=== PATIENT | female | born 1990 | race Caucasian/White ===

== ENCOUNTER 2020-06-11 00:12 | Observation (INO) ==
[2020-06-11] MEDS ORDERED: SODIUM CHLORIDE 0.9% 1000ML 1,000 ML IV ONE (00:29)
[2020-06-11] MEDS ORDERED: FAMOTIDINE 20MG/5ML IV PUSH IV STA (00:29)
[2020-06-11] MEDS ORDERED: ONDANSETRON INJ 2 MG/ML 2 ML VIAL IV STA (00:29)
--- NOTE | 2020-06-11 00:34 | Emergency Department Note ---
History of Present Illness General Chief complaint: Abdominal Pain Stated complaint: NAUSEA,CHILLS,R SIDE INTO CHEST PAIN Time Seen by Provider: 06/11/20 00:20 History of Present Illness Maximum Pain Intensity: 6 This 29-year-old presents to the ER complaining of nausea and right upper q uadrant pain Location: Right upper quadrant Quality: Painful Severity: Moderate Duration: This morning Timing: Started at 9 AM Context: Symptoms got worse and patient came in Modifying factors: better with nothing; worse with eating Patient still has her gallbladder. Patient denies chest pain, dyspnea, fever, chills, flulike illness, urinary symptoms, diarrhea. Patient denies risk fact ors for Covid. She tested -3 weeks ago as her fianc was exposed to Covid as he works at the [employer]. Patient had a tubal ligation. No other abdominal surgeries. Home Medications Medication Instructions Recorded Confirmed Type naproxen 500 mg PO BID PRN 06/11/20 06/11/20 History Allergies Allergy/AdvReac Type Severity Reaction Status Date / Time No Known Allergies Allergy Verified 06/11/20 01:48 Past Med/Surg History Medical History No significant past medical history Surgical History H/O tubal ligation Social History Smoking Status: Never smoker Preferred Language: Spanish Feels Safe at Home: Yes Review of Systems A total of 10 systems reviewed and were otherwise negative Physical Exam Vital Signs Vital Signs - 24 hr 06/11/20 00:16 06/11/20 02:15 Temperature 37.1 C Temperature Source Temporal Artery Scan Pulse Rate 82 65 Pulse Rate [Finger] 65 Pulse Rhythm Regular Regular Pulse Rhythm [Finger] Regular Pulse Strength Normal Pulse Strength [Finger] Normal Respiratory Rate 20 18 Respiratory Effort / Characteristics Non-Labored Spontaneous Non-Labored Spontaneous Respiratory Depth Normal Normal Respiratory Pattern Regular Regular Blood Pressure 135/71 Blood Pressure [Right Arm] 130/87 Blood Pressure Mean 92 Blood Pressure Mean [Right Arm] 101 Blood Pressure Position Sitting Blood Pressure Position [Right Arm] Lying Pulse Oximetry 99 98 Oxygen Delivery Method Room Air Room Air Sepsis Recent Fever Within 48 Hours No Sepsis New/Unexplained Change in Mental Status N/A Sepsis Action Taken by Nursing No Action Required VITALS: Vitals are noted on the nurse's note and reviewed by myself. Vital signs stable. GENERAL: Pleasant female, in no acute distress, nondiaphoretic, well-developed well-nourished. SKIN: Capillary reflex less than 2 seconds. HEENT: Normocephalic. PERRLA. EOMI. Nares patent. Mucous membranes moist. Neck is supple without nuchal rigidity. HEART: Regular rate and rhythm without murmurs gallops or rubs. LUNGS: Clear to auscultation bilaterally without wheezes, rales or rhonchi. No retractions or accessory muscle use. ABDOMEN: Positive bowel sounds x 4. Normal tympanic percussion. Soft, tender to palpation right upper quadrant, without masses or organomegaly. No CVA tenderness. No guarding or rebound tenderness. MUSCULOSKELETAL: No gross musculoskeletal defects. NEURO: Patient was alert and oriented to person place and time. No focal neurological deficits. Course Administered Medications Discontinued Medications Famotidine (Famotidine 20mg/5ml Iv Push) 20 mg IV ONE STA Stop: 06/11/20 00:30 Last Admin: 06/11/20 00:44 Dose: 20 mg Documented by: [id number] Sodium Chloride (Nss 1000ml) 1,000 mls @ 999 mls/hr IV .Q1H1M ONE Stop: 06/11/20 01:29 Last Infusion: 06/11/20 02:19 Dose: 0 mls/hr Documented by: [id number] Admin: 06/11/20 00:44 Dose: 999 mls/hr Documented by: [id number] Ondansetron HCl (Ondansetron Inj 2 Mg/Ml 2 Ml Vial) 4 mg IV NOW STA Stop: 06/11/20 00:30 Last Admin: 06/11/20 00:43 Dose: 4 mg Documented by: [id number] Medical Decision Making Medical Records Attestation: I reviewed the patient's medical records. Home Medications Current Medication List: was personally reviewed by me Laboratory Data Attestation: I reviewed the patient's lab results. Result diagrams: 06/11/20 00:46 06/11/20 00:46 Lab Results 06/11/20 06/11/20 06/11/20 Range/Units 00:46 00:46 00:46 WBC 14.15 H (4.8-10.8) K/uL RBC 4.12 L (4.2-5.4) M/uL Hgb 12.9 (12.0-16.0) g/dL Hct 37.5 (37-47) % MCV 91.0 (80-100) fL MCH 31.3 (25-34) pg MCHC 34.4 (32-36) g/dL RDW Std Deviation 42.7 (36.4-46.3) fL RDW Coeff of Matt 12.8 (11.5-14.5) % Plt Count 298 (130-400) K/uL MPV 10.4 (7.4-10.4) fL Immature Gran % (Auto) 0.2 % Neut % (Auto) 67.2 % Lymph % (Auto) 24.7 % [place] % (Auto) 5.7 % Eos % (Auto) 1.9 % Baso % (Auto) 0.3 % Neut # (Auto) 9.51 H (1.4-6.5) K/uL Lymph # (Auto) 3.49 H (1.2-3.4) K/uL [place]ether # (Auto) 0.81 H (0.11-0.59) K/uL Eos # (Auto) 0.27 (0-0.5) K/uL Baso # (Auto) 0.04 (0-0.2) K/uL Immature Gran # (Auto) 0.03 H (0.00-0.02) K/uL Sodium 139 (136-145) mmol/L Potassium 3.6 (3.5-5.1) mmol/L Chloride 108 H (98-107) mmol/L Carbon Dioxide 27 (21-32) mmol/L Anion Gap 4.0 (3-11) BUN 11 (7-18) mg/dl Creatinine 0.87 (0.6-1.2) mg/dl Est Cr Clr Drug Dosing 103.0 ml/min Est GFR ( Amer) 104.3 Est GFR (Non-Af Amer) 90.0 BUN/Creatinine Ratio 12.3 (10-20) Glucose 103 H (70-99) mg/dl Calcium 7.8 L (8.5-10.1) mg/dl Total Bilirubin 0.2 (0.2-1) mg/dl AST 18 (15-37) U/L ALT 26 (12-78) U/L Alkaline Phosphatase 62 (45-117) U/L Total Protein 6.9 (6.4-8.2) gm/dl Albumin 3.3 L (3.4-5.0) gm/dl Globulin 3.6 (2.5-4.0) gm/dl Albumin/Globulin Ratio 0.9 (0.9-2) Lipase 83 (73-393) U/L Urine Color Yellow Urine Appearance Clear (Clear) Urine pH 7.0 (4.5-7.5) Ur Specific [place] 1.028 (1.000-1.030) Urine Protein Negative (Negative) Urine Glucose (UA) Negative (Negative) Urine Ketones Trace H (Negative) Urine Blood Negative (Negative) Urine Nitrite Negative (Negative) Urine Bilirubin Negative (Negative) Urine Urobilinogen Negative (Negative) Ur Leukocyte Esterase Negative (Negative) Urine Test (Negative) 06/11/20 Range/Units 00:46 WBC (4.8-10.8) K/uL RBC (4.2-5.4) M/uL Hgb (12.0-16.0) g/dL Hct (37-47) % MCV (80-100) fL MCH (25-34) pg MCHC (32-36) g/dL RDW Std Deviation (36.4-46.3) fL RDW Coeff of Matt (11.5-14.5) % Plt Count (130-400) K/uL MPV (7.4-10.4) fL Immature Gran % (Auto) % Neut % (Auto) % Lymph % (Auto) % [place] % (Auto) % Eos % (Auto) % Baso % (Auto) % Neut # (Auto) (1.4-6.5) K/uL Lymph # (Auto) (1.2-3.4) K/uL [place] # (Auto) (0.11-0.59) K/uL Eos # (Auto) (0-0.5) K/uL Baso # (Auto) (0-0.2) K/uL Immature Gran # (Auto) (0.00-0.02) K/uL Sodium (136-145) mmol/L Potassium (3.5-5.1) mmol/L Chloride (98-107) mmol/L Carbon Dioxide (21-32) mmol/L Anion Gap (3-11) BUN (7-18) mg/dl Creatinine (0.6-1.2) mg/dl Est Cr Clr Drug Dosing ml/min Est GFR ( Amer) Est GFR (Non-Af Amer) BUN/Creatinine Ratio (10-20) Glucose (70-99) mg/dl Calcium (8.5-10.1) mg/dl Total Bilirubin (0.2-1) mg/dl AST (15-37) U/L ALT (12-78) U/L Alkaline Phosphatase (45-117) U/L Total Protein (6.4-8.2) gm/dl Albumin (3.4-5.0) gm/dl Globulin (2.5-4.0) gm/dl Albumin/Globulin Ratio (0.9-2) Lipase (73-393) U/L Urine Color Urine Appearance (Clear) Urine pH (4.5-7.5) Ur Specific [place] (1.000-1.030) Urine Protein (Negative) Urine Glucose (UA) (Negative) Urine Ketones (Negative) Urine Blood (Negative) Urine Nitrite (Negative) Urine Bilirubin (Negative) Urine Urobilinogen (Negative) Ur Leukocyte Esterase (Negative) Urine Test Negative (Negative) Imaging Data Attestation: I personally reviewed and interpreted this imaging study as follows: MDM Narrative Prior records/ancillary studies reviewed. Triage Nursing notes reviewed. The patient's history was concerning for abdominal pain. Differential diagnosis: Etiologies such as appendicitis, diverticulitis, PUD, biliary pathology, UTI, pancreatitis, obstruction, mesenteric ischemia, aortic pathology, infections, inflammatory bowel disease, renal colic, as well as others were entertained. Physical examination findings: As above. ER treatment provided: An order was placed for continuous cardiac monitoring. The monitor shows a rate of 60-100 with a sinus rhythm. Pepcid, Zofran, IV fluids On reassessment the patient felt better. Diagnostics interpreted by me: The labs revealed leukocytosis, negative urine, negative hCG Normal LFTs, normal lipase Imaging studies: US RUQ: The gallbladder is mildly dilated measuring 11.7 cm long axis filled with multiple shadowing stones at the fundus. There is a possible 4 mm shadowing stone in the cystic duct. The gallbladder wall is thickened measuring 5 mm, suggesting acute cholecystitis. The visualized portion of the pancreas, aorta, and IVC are unremarkable. The liver measures 14.6 cm with normal echogenicity. The portal vein is patent with normal hepatopedal flow. No focal liver lesion is seen. The common bile duct is nondilated measuring 3 mm. The right kidney is unremarkable. No hydronephrosis is seen. Radiologist: Talat Salvador MD Consultation: A consultation was placed with the GS, Dr Alford. The case was discussed and diagnostics were reviewed. The patient was admitted to her service. Exam and history seem consistent with acute cholecystitis. Surgery was consulted. They will admit. She states she will put in all the orders. Patient was informed of all questions were answered. She was admitted to the surgical service. Patient was afebrile nontoxic. Normal LFTs and T bili. By the evaluation outlined above emergent etiologies such as appendicitis, diverticulitis, PUD, UTI, pancreatitis, obstruction, mesenteric ischemia, aortic pathology, inflammatory bowel disease, renal colic, as well as others were deemed relatively unlikely. The pt informed about the findings as listed above. All questions were answered and pleased with the treatment. The chart was completed utilizing [employer] Speech voice recognition software. Grammatical errors, random word insertions, pronoun errors, and incomplete sentences are an occassional consequence of this system due to software limitations, ambient noise, and hardware issues. Any formal questions or concerns about the content, text, or information contained within the body of this dictation should be directly addressed to the physician curriculum assistant for clarification. Impression & Plan Acute cholecystitis due to biliary calculus Discharge Plan Visit Data Chief Complaint: Abdominal Pain Stated Complaint: NAUSEA,CHILLS,R SIDE INTO CHEST PAIN ED Provider: Silvana Boo ED Midlevel Provider: Michelle Farooq Discharge Problem: Acute cholecystitis due to biliary calculus Patient Disposition: Being Evaluated by Surgeon Condition: Good Forms Stand Alone Forms: My [facility] Prescriptions Prescriptions: No Action naproxen 500 mg tablet 500 mg PO BID PRN (Reason: Pain) RF: 0 Referrals Referrals: Narda Santillan PA-C [Primary Care Provider] -
[2020-06-11 01:00] LABS: Appearance Urine Clear (Clear); Basophils # (auto) 0.04 K/uL (0-0.2); Basophils % (auto) 0.3 %; Bilirubin Urine Negative (Negative); Blood Urine Negative (Negative); Color Urine Yellow; Eosinophils # (auto) 0.27 K/uL (0-0.5); Eosinophils % (auto) 1.9 %; Glucose Urine UA Negative (Negative); Hematocrit (blood only) 37.5 % (37-47); Hemoglobin 12.9 g/dL (12.0-16.0); Immature Granulocytes # (auto) 0.03 K/uL (0.00-0.02); Immature Granulocytes % (auto) 0.2 %; Ketones Urine Trace (Negative); Leukocyte Esterase Urine Negative (Negative); Lymphocytes # (auto) 3.49 K/uL (1.2-3.4); Lymphocytes % (auto) 24.7 %; Mean Corpuscular Hemoglobin 31.3 pg (25-34); Mean Corpuscular Hgb Conc 34.4 g/dL (32-36); Mean Platelet Volume 10.4 fL (7.4-10.4); Monocytes # (auto) 0.81 K/uL (0.11-0.59); Monocytes % (auto) 5.7 %; Neutrophils # (auto) 9.51 K/uL (1.4-6.5); Neutrophils % (auto) 67.2 %; Nitrite Urine Negative (Negative); Platelet Count 298 K/uL (130-400); Protein Urine Negative (Negative); RDW Coefficient of Variation 12.8 % (11.5-14.5); RDW Standard Deviation 42.7 fL (36.4-46.3); Red Blood Count 4.12 M/uL (4.2-5.4); Specific Gravity Urine 1.028 (1.000-1.030); Urobilinogen Urine Negative (Negative); White Blood Count 14.15 K/uL (4.8-10.8)
[2020-06-11 01:02] LABS: Pregnancy Test, Urine Negative (Negative)
[2020-06-11 01:17] LABS: Albumin Level 3.3 gm/dl (3.4-5.0); BUN Creatinine Ratio 12.3 (10-20); Calcium 7.8 mg/dl (8.5-10.1); Est GFR (African American) 104.3; Potassium 3.6 mmol/L (3.5-5.1)
[2020-06-11 01:19] LABS: Albumin Globulin Ratio 0.9 (0.9-2); Bilirubin,Total 0.2 mg/dl (0.2-1); Globulin 3.6 gm/dl (2.5-4.0); Total Protein 6.9 gm/dl (6.4-8.2)
--- NOTE | 2020-06-11 02:43 | History & Physical Report ---
Date of Service June 11, 2020 Assessment & Plan (1) Acute cholecystitis due to biliary calculus: Discussed laparoscopic cholecystectomy with risks of bleeding, infection, conversion to open, postop diarrhea/ food intolerances, bile leak with need for ercp, retained stone. All questions answered. Expected 2 week recovery period reviewed. Consent signed. For OR today. History of Present Illness Chief Complaint: right upper quadrant abdominal pain Primary Care Provider: Narda Santillan 29 yr old woman who developed right upper quadrant abdominal pain around 9 am Friday morning. Pain was of moderate intensity, persistent, 8/10 in intensity, started up under right ribcage radiated up to epigastrium and into right lower quadrant. Following ultrasound, also radiated into right back/ shoulder blade. Better this morning but matrix drier tender. Nausea with the pain yesterday but no vomiting. No changes in bowel habits. No fevers/ chills. Strong family history of gallbladder disease - "everyone". Pain better with medications. No similar episodes in the past. Allergies Allergy/AdvReac Type Severity Reaction Status Date / Time No Known Allergies Allergy Verified 06/11/20 01:48 Home Medications Medication Instructions Recorded Confirmed Type naproxen 500 mg PO BID PRN 06/11/20 06/11/20 History Past Med/Surg History Medical History No significant past medical history Surgical History H/O tubal ligation Social History Smoking Status: Current every day smoker Second Hand Exposure: Yes; Do You Dip or Chew Tobacco: No; Tobacco Cessation Education Requested by Patient: No Hx Alcohol Use: Yes Alcohol type: beer and wine Hx Substance Use: No Preferred Language: Arabic Communication Ability: Effective Needle Grader Required: No Beliefs That Will Affect Care: None Current Living Situation: Family Other Information That Helps Us Care for You: No Feels Safe at Home: Yes Safety Concerns: Feels Safe At This Time Assistive Devices: Glasses Review of Systems Review of Systems: All systems reviewed & are unremarkable except as noted in HPI & below Physical Exam Constitutional: WD/WN, vitals as above Eyes: PERRL, conjunctivae normal, anicteric sclerae ENMT: Ears: no hearing impairment and no external ear abnormality Neck: normal visual inspection Respiratory: normal respiratory effort, lungs clear to auscultation Cardiovascular: RRR, no murmur, no edema Gastrointestinal (Abdomen): Inspection/Auscultation: abdomen normal to inspection and normal bowel sounds; abdomen not distended Percussion/Palpation: + abdomen tender (right upper and mid abdomen), + guarding (mild) and abdomen soft Musculoskeletal: Head/Neck/Chest: + head abnormal to inspection, normocephalic and head atraumatic Extremities: extremities normal to inspection Neurologic: CN's II-XI intact bilaterally; no focal motor deficits Psychiatric: A+Ox3, euthymic affect Results & Data Results & Data ([facility]) Vital Signs (Past 12 Hours) Vital Signs Temp Pulse Pulse Resp BP BP Pulse Ox 06/11/20 02:15 65 65 18 130/87 98 06/11/20 00:16 37.1 C 82 20 135/71 99 Laboratory Results Abnormal lab results 06/11/20 06/11/20 06/11/20 Range/Units 00:46 00:46 00:46 WBC 14.15 H (4.8-10.8) K/uL RBC 4.12 L (4.2-5.4) M/uL Neut # (Auto) 9.51 H (1.4-6.5) K/uL Lymph # (Auto) 3.49 H (1.2-3.4) K/uL Petroleum # (Auto) 0.81 H (0.11-0.59) K/uL Immature Gran # (Auto) 0.03 H (0.00-0.02) K/uL Chloride 108 H (98-107) mmol/L Glucose 103 H (70-99) mg/dl Calcium 7.8 L (8.5-10.1) mg/dl Albumin 3.3 L (3.4-5.0) gm/dl Urine Ketones Trace H (Negative) Diagnostic Findings RUQ US shows gallstones, thickened wall with stone in neck of gallbladder
[2020-06-11] MEDS ORDERED: MoRPHine SULFATE 4 MG/ML 1 ML CARP\\VIAL IV STA (03:00)
[2020-06-11] MEDS ORDERED: oxyCODONE/ACETAMINOPHEN 5mg/325mg TAB PO PRN ×2 (05:12)
[2020-06-11] MEDS ORDERED: ONDANSETRON INJ 2 MG/ML 2 ML VIAL IV PRN ×2 (05:12→11:46)
[2020-06-11] MEDS ORDERED: ACETAMINOPHEN 325 MG TAB PO PRN (05:12)
[2020-06-11] MEDS ORDERED: MoRPHine SULFATE 4 MG/ML 1 ML CARP\\VIAL IV PRN (05:12)
[2020-06-11] MEDS: MoRPHine SULFATE 2 MG/ML CARP IV PRN (06:05)
[2020-06-11] MEDS: AMPICILLIN/SULBACTAM SOD 1,500 MG in 0.9 % SODIUM CHLORIDE 100 ML IV SCH ×4 (06:06→23:54)
[2020-06-11] MEDS: LACTATED RINGER'S 1,000 ML IV SCH ×2 (06:06→20:12)
--- NOTE | 2020-06-11 08:45 | Ultrasound Report ---
US gallbladder HISTORY: 29 years-old Female ruq pain, ? GB acute right upper quadrant abdominal pain. COMPARISON: None TECHNIQUE: Multiple real-time sonographic images of the abdominal right upper quadrant were obtained assessing grayscale appearance and color flow FINDINGS: The visualized pancreas is unremarkable. The liver is also within normal limits. Common bile duct is normal, 3 mm. Edematous gallbladder wall thickening measures up to 4.8 mm. Gallbladder is moderately distended. The re is a 4.1 x 1.8 x 2.4 cm echogenic nonmobile structure with posterior acoustic shadowing within the dependent gallbladder fundus suggestive of probable cholelithiasis. Mobile gallstones are noted with in the gallbladder neck with probable nonmobile stone within the cystic duct. Sonographic Granados sign was unable to be assessed secondary to pain medication administered to the patient prior to the stud y. No definite pericholecystic fluid. Unremarkable right kidney. The main portal vein is patent. IMPRESSION: 1. Cholelithiasis with sonographic evidence of acute cholecystitis. Probable gallstone within the cys tic duct. 2. No appreciable biliary ductal dilation. ACT 112: Negative or not required by law. The above report was generated using voice recognition software. It may contain grammatical, syntax o r spelling errors. Electronically signed by: Ta Otto M.D. 06/11/2020 8:43 AM
[2020-06-11] MEDS ORDERED: ROCURONIUM BROMIDE 10 MG/ML 5 ML VIAL IV ONE (11:20)
[2020-06-11] MEDS ORDERED: NEOSTIGMINE METHYLSULFATE 5 MG/5 ML SYR ONE (11:20)
[2020-06-11] MEDS ORDERED: LIDOCAINE HCL 2% 2 ML VIAL/AMP(20MG/ML) INFIL ONE (11:20)
[2020-06-11] MEDS ORDERED: DEXAMETHASONE SOD INJ 4 MG/ML VIAL ONE (11:20)
[2020-06-11] MEDS ORDERED: fentaNYL citrate 100 MCG/2 ML VIAL ONE ×3 (11:20→12:40)
[2020-06-11] MEDS ORDERED: PROPOFOL IV EMULSION 10 MG/ML 20 ML VIAL IV ONE (11:20)
[2020-06-11] MEDS ORDERED: MIDAZOLAM HCL 1 MG/ML 2ML VIAL ONE (11:20)
[2020-06-11] MEDS ORDERED: GLYCOPYRROLATE 0.2 MG/ML VIAL ONE (11:20)
[2020-06-11] MEDS ORDERED: ONDANSETRON INJ 2 MG/ML 2 ML VIAL ONE (11:20)
[2020-06-11] MEDS ORDERED: BUPIVACAINE 0.5 % 5 MG/1 ML MPF 30ML VIAL ONE (11:41)
[2020-06-11] MEDS ORDERED: PROMETHAZINE HCL 12.5 MG in SODIUM CHLORIDE 0.9% 50 ML IV PRN (11:46)
[2020-06-11] MEDS ORDERED: ePHEDrine sulfate 50 MG/ML AMP IV PRN (11:46)
[2020-06-11] MEDS ORDERED: ATROPINE SULFATE 0.1 MG/ML 10ML SYR IV PRN (11:46)
[2020-06-11] MEDS ORDERED: fentaNYL citrate 100 MCG/2 ML VIAL IV PRN (11:46)
[2020-06-11] MEDS ORDERED: HYDROmorphone INJ 2 MG/ML SYR/VIAL IV PRN (11:46)
--- NOTE | 2020-06-11 11:46 | Anesthesiology Consultation ---
Date of Service June 11, 2020 Assessment & Plan ASA ASA2 Proposed Anesthesia Anesthesia Type: General Risk / Benefits Reviewed With: PT / POA / Parent / Guardian, Accepts Plan and Informed Consent Obtained History Surgery Operation Date: 06/11/20 11:15 Proposed Procedures p Laparoscopic Cholecystectomy - Brooklynn Alford MD Height/Weight Height: 5 ft 4 in Weight: 86 kg Allergies Allergy/AdvReac Type Severity Reaction Status Date / Time No Known Allergies Allergy Verified 06/11/20 01:48 Medications Home Medications Medication Instructions Recorded Confirmed Last Taken hydrocodone-acetaminophen [Henderson] 1 tab PO Q4H PRN #20 tab 06/11/20 Unknown naproxen 500 mg PO BID PRN 06/11/20 06/11/20 Unknown ondansetron HCl [Zofran] 4 mg PO Q8H PRN #20 tab 06/11/20 Unknown Active Medications Generic Name Dose Route Start Last Admin Trade Name Freq PRN Reason Stop Dose Admin Lactated Ringer's 1,000 mls @ 100 mls/hr 06/11/20 05:12 06/11/20 06:06 Lr IV 07/11/20 05:11 100 mls/hr .Q10H ANDRIY Administration Ampicillin Sodium/Sulbactam 104 mls @ 200 mls/hr 06/11/20 05:30 06/11/20 06:38 Sodium 1,500 mg/ Sodium IV 06/21/20 05:29 Infused Chloride Q6 ANDRIY Infusion Protocol Morphine Sulfate 2 mg 06/11/20 05:12 06/11/20 06:05 Morphine Sulfate 2 Mg/Ml Carp IV 06/25/20 05:11 2 mg Q3H PRN Administration Pain (1,2,3,4,5) & Pre PT NPO Date Last Intake of Fluids: 06/10/20 Time Last Intake of Fluids: 23:30 Date Last Intake of Solids: 06/10/20 Time Last Intake of Solids: 18:00 Past Medical History Medical History No significant past medical history Exercise / Class Metabolic Activity II 4-5 Yardwork/Stairs/Walk up hill Past Surgical History Surgical History H/O tubal ligation Past Anesthesia History No Hx of Anesthesia Complications and No Family Hx of Anesthesia Complications History of PONV No Hx of PONV and No Hx of Motion Sickness Social History Smoking Status: Current every day smoker tobacco type: cigarettes Do You Dip or Chew Tobacco: No Hx Alcohol Use: Yes Alcohol type: beer and wine alcohol intake frequency: holidays/special occasions only Hx Substance Use: No substance use type: does not use Review of Systems denies fever/cough/ colds/ chest pain/ SOB/ EKTA denies EKTA Physical Exam Vital Signs Last Vital Signs Temp 36.9 C 06/11/20 07:48 Pulse 85 06/11/20 07:48 Resp 18 06/11/20 07:48 BP 109/61 06/11/20 07:48 Pulse Ox 97 06/11/20 07:48 ENMT Mouth: no TMJ abnormality and no dentition abnormality Thyromental Distance: > or= 3.5 Finger Breadths Mallampati Class: II Neck neck extension not limited Respiratory normal respiratory effort; no respiratory distress Auscultation: lungs clear to auscultation bilaterally Cardiovascular Rate/Rhythm: regular rate and regular rhythm Neurologic moves all extremities Psychiatric Orientation: alert and oriented x 3 Testing Laboratory Results 06/11/20 00:46 06/11/20 00:46 Urine Color Yellow 06/11/20 00:46 Urine Appearance Clear (Clear) 06/11/20 00:46 Urine pH 7.0 (4.5-7.5) 06/11/20 00:46 Ur Specific [place] 1.028 (1.000-1.030) 06/11/20 00:46 Urine Protein Negative (Negative) 06/11/20 00:46 Urine Glucose (UA) Negative (Negative) 06/11/20 00:46 Urine Ketones Trace (Negative) H 06/11/20 00:46 Urine Nitrite Negative (Negative) 06/11/20 00:46 Ur Leukocyte Esterase Negative (Negative) 06/11/20 00:46 Urine Test Negative (Negative) 06/11/20 00:46 06/11/20 00:46 Urine Test Negative
[2020-06-11] MEDS ORDERED: KETOROLAC 30 MG/ML VIAL ONE (12:24)
--- NOTE | 2020-06-11 12:59 | Operative Report ---
Post Operative Report Pre & Post Diagnosis Operation Date: 06/11/20 11:15 Pre-Op Diagnosis: Acute Cholecystitis Post-Op Diagnosis: Acute Cholecystitis I identified the patient and participated in the time-out.: Yes Procedure Operation Date: 06/11/20 11:15 Actual Procedures p Laparoscopic Cholecystectomy - Brooklynn Alford MD Surgeon Brooklynn Alford MD Cnc Router Operator none Estimated Blood Loss 5 Findings Consistent with Post-Op Diagnosis (edematous distended gallbladder with stones) Specimens gallbladder Description of Procedure The patient received Unasyn preoperatively. After the induction of general endotracheal anesthesia, she had placement placement of sequential compression devices. Her abdomen was sterilely prepped and draped. She was positioned in Trendelenburg. A supraumbilical incision was made and a Veress needle was placed into the peritoneal cavity. This was tested with the saline drop test. Initial pressure was 1 mmHg and this was taken up to 15 mmHg. A 5 mm trocar was placed with the camera through the trocar port. The abdomen was initially inspected and a very distended edematous gallbladder was noted. 3 additional trochars were placed with a 11 mm trocar in the epigastrium and 2 5 mm trocars on the right upper quadrant. The gallbladder was decompressed with a needle. This was then grasped and retracted over the edge of the liver. Dissection was begun at the triangle of Calot. The cystic duct and cystic artery were identified. The structures were triangulated and critical view seen anteriorly and posteriorly. The cystic duct was doubly clipped on the remaining side doubly clipped on the gallbladder side and divided. The cystic artery was doubly clipped on the remaining side singly clipped on the gallbladder side and divided. The gallbladder was dissected off the liver bed without difficulty. It was placed in an Endobag and removed through the epigastric incision. Hemostasis was noted to be present. The abdomen was suctioned and irrigated until the effluent was clear. There was no evidence of any bleeding noted. The trochars were removed. 30 cc of half percent Marcaine was used for local anesthesia throughout the procedure. The epigastric fascia was closed with 0 Vicryl stitches placed anteriorly. The skin of all 4 incisions was closed with running subcuticular 4-0 Vicryl sutures. Steri-Strips and sterile dressings were applied. She was awakened and taken to recovery in stable condition. I attest to the content of the Intraoperative Record and any orders documented therein. Any exceptions are noted below.
--- NOTE | 2020-06-11 13:48 | Anesthesiology Progress Note ---
Date of Service June 11, 2020 Anesthesia Post Procedure Vital Signs Vital Signs: Temp Pulse Pulse Pulse Resp BP BP 06/11/20 13:45 36.6 C 63 14 134/86 06/11/20 13:35 65 18 141/88 H 06/11/20 13:25 63 15 134/98 06/11/20 13:15 81 20 137/93 06/11/20 13:09 36.4 C L 81 20 128/86 06/11/20 07:48 36.9 C 85 18 109/61 06/11/20 05:12 36.9 C 64 16 124/83 06/11/20 03:10 67 18 126/82 06/11/20 02:15 65 65 18 130/87 06/11/20 00:16 37.1 C 82 20 135/71 Pulse Ox 06/11/20 13:45 94 06/11/20 13:35 94 06/11/20 13:25 100 06/11/20 13:15 100 06/11/20 13:09 96 06/11/20 07:48 97 06/11/20 05:12 97 06/11/20 03:10 99 06/11/20 02:15 98 06/11/20 00:16 99 Pain Intensity Abdomen: Pain Intensity: 5 Transfer of Care Handoff Completed per policy Notes Mental Status: alert / awake / arousable and participated in evaluation Patient Amnestic to Procedure: Yes Nausea / Vomiting: adequately controlled Pain: adequately controlled Airway Patency, RR, SpO2: stable & adequate BP & HR: stable & adequate Hydration State: stable & adequate Anesthetic Complications: no major complications apparent and Pt Satisfied with anesthetic care
[2020-06-11] MEDS ORDERED: HYDROCODONE/ACETAMOPHEN 5/325MG TAB PO PRN (14:20)
[2020-06-11] MEDS: HYDROCODONE/ACETAMOPHEN 5/325MG TAB PO PRN (23:54)
[2020-06-12] MEDS: HYDROCODONE/ACETAMOPHEN 5/325MG TAB PO PRN (00:42)
[2020-06-12] MEDS: MoRPHine SULFATE 2 MG/ML CARP IV PRN (04:01)
[2020-06-12] MEDS: LACTATED RINGER'S 1,000 ML IV SCH ×2 (06:15→12:35)
[2020-06-12] MEDS: AMPICILLIN/SULBACTAM SOD 1,500 MG in 0.9 % SODIUM CHLORIDE 100 ML IV SCH ×2 (06:15→12:35)
--- NOTE | 2020-06-12 11:32 | Surgery Progress Note ---
Date of Service F/U S/P laparoscopic cholecystectomy, POD 1 pt is doing fine, no significant abdominal pain, no nausea, no vomiting, tolerated diet, June 12, 2020 Assessment & Plan (1) Acute cholecystitis due to biliary calculus: Discussed laparoscopic cholecystectomy with risks of bleeding, infection, conversion to open, postop diarrhea/ food intolerances, bile leak with need for ercp, retained stone. All questions answered. Expected 2 week recovery period reviewed. Consent signed. For OR today. 06/12/2020 11:36AM S/P lap julio c doing fine, D/C home today, the post op care instruction was given, F/U Dr. Alford in 2 weeks, Admission and Anticipated Discharge Date Admission Date: June 11, 2020 Physical Exam Constitutional: WD/WN, vitals as above well developed and well nourished Eyes: PERRL, conjunctivae normal, anicteric sclerae ENMT: external ear and nose normal, oropharynx normal Neck: trachea midline, no thyromegaly Respiratory: normal respiratory effort, lungs clear to auscultation Cardiovascular: RRR, no murmur, no edema Gastrointestinal (Abdomen): normal bowel sounds, soft, nontender, no hepatosplenomegaly Percussion/Palpation: abdomen soft all dressing are intact, no redness on incision site, mild tenderness at incision site, BS +, no distend Musculoskeletal: no cyanosis or clubbing, extremities motor strength 5/5 Neurologic: awake Psychiatric: Orientation: alert and oriented x 3 Results & Data ([facility]) Vital Signs (Past 12 Hours) Vital Signs Temp Pulse Resp BP BP Pulse Ox 06/12/20 08:16 132/85 06/12/20 07:33 36.8 C 76 18 172/79 H 96 06/12/20 03:52 36.9 C 76 16 112/70 96 PG Care Time/CCT Total # of Minutes Spent Total Time Spent with Patient: Total time spent is greater than 50% in coordination of care (as documented) at patient's floor/unit and/or counseling patient: Coding Level of Care Code 98421 Subseq Hosp Care Lvl 2 Diagnoses Acute cholecystitis due to biliary calculus K80.00
[2020-06-12 12:11] VITALS: PULSE 79; TEMP 98.4; O2SAT 94
[2020-06-12 12:26] VITALS: BP 132/85
--- NOTE | 2020-06-13 10:52 | Discharge Summary ---
Date of Service June 13, 2020 Admission HPI Per Admitting Provider 29 yr old woman who developed right upper quadrant abdominal pain around 9 am Friday morning. Pain was of moderate intensity, persistent, 8/10 in intensity, started up under right ribcage radiated up to epigastrium and into right lower quadrant. Following ultrasound, also radiated into right back/ shoulder blade. Better this morning but laundry machine tender. Nausea with the pain yesterday but no vomiting. No changes in bowel habits. No fevers/ chills. Strong family history of gallbladder disease - "everyone". Pain better with medications. No similar episodes in the past. Admission Exam (Per Admitting) Constitutional WD/WN, vitals as above Eyes PERRL, conjunctivae normal, anicteric sclerae ENMT Ears: no hearing impairment and no external ear abnormality Neck normal visual inspection Respiratory normal respiratory effort, lungs clear to auscultation Cardiovascular RRR, no murmur, no edema Gastrointestinal (Abdomen) Inspection/Auscultation: abdomen normal to inspection and normal bowel sounds; abdomen not distended Percussion/Palpation: + abdomen tender (right upper and mid abdomen), + guarding (mild) and abdomen soft Musculoskeletal Head/Neck/Chest: + head abnormal to inspection, normocephalic and head atraumatic Extremities: extremities normal to inspection Neurologic CN's II-XI intact bilaterally; no focal motor deficits Psychiatric A+Ox3, euthymic affect Discharge Data Consultations 06/11/20 02:34 ED Decision to Admit Stat Procedures Performed Operation Date: 06/11/20 11:15 Actual Procedures p Laparoscopic Cholecystectomy - Brooklynn Alford MD Hospital Course (1) Acute cholecystitis due to biliary calculus: Discussed laparoscopic cholecystectomy with risks of bleeding, infection, conversion to open, postop diarrhea/ food intolerances, bile leak with need for ercp, retained stone. All questions answered. Expected 2 week recovery period reviewed. Consent signed. For OR today. 06/12/2020 11:36AM S/P kristie bunch doing fine, D/C home today, the post op care instruction was given, F/U Dr. Alford in 2 weeks,
== END 2020-06-12 15:15 | disposition home or self-care (01) ==
LOC: ED 00:12 → 3N 00:12